=== PATIENT | female | born 1970 | race Native Hawaiian/Other Pacific Islander ===

== ENCOUNTER 2016-12-24 20:31 | Emergency (ER) | payer OTHER ==
[~2016-12-24] VITALS: Ht 154.9 cm; Wt 90.3 kg
[~2016-12-24 20:31] MED LIST: ACET7.5T70 PO; ADIPEX PO; ALPR0.5T24 PO; AMLO10TA PO; LISI20TA24 PO; LISI20TA31 PO
== END 2016-12-24 21:30 | disposition home or self-care (01) ==
LOC: ED 20:31
DX: S30.1XXA Contusion of abdominal wall, initial encounter (principal); V43.52XA Car driver injured in collision with other type car in traffic accident, initial encounter
CPT/HCPCS: 99281